=== PATIENT | male | born 1955 | race African-American/Black ===

== ENCOUNTER 2018-09-23 14:19 | Inpatient (IN) | payer MEDICARE, OTHER ==
[~2018-09-23] VITALS: Ht 175.3 cm; Wt 82.1 kg
[~2018-09-23 14:19] MED LIST: ASPI-1073 PO; METF-414 PO; METO25TA6 PO; SIMVASTATIN PO; TAMS-11 PO
[2018-09-23] MEDS ORDERED: LORAZEPAM 1MG TABLET PO ONE (14:45)
[2018-09-23] MEDS ORDERED: FOLIC ACID 1 MG, THIAMINE HCL 100 MG, MVI, ADULT NO.1 10 ML in DEXTROSE 5% WATER 1,000 ML IV ONE ×4 (15:15)
[2018-09-23] MEDS ORDERED: LORAZEPAM 2MG/ML CPJ IV ONE (15:15)
[2018-09-23] MEDS ORDERED: THIAMINE HCL 100 MG/1 ML 2ML VIAL ONE (15:21)
[2018-09-23 15:26] LABS: BASOPHILS % 0.7 % (0.0-2.0); EOSINOPHILS % 0.3 % (0.0-5.0); HEMATOCRIT. 44.3 % (42.0-52.0); HEMOGLOBIN. 15.4 g/dL (14.0-18.0); LYMPHOCYTES % 24.1 % (20.0-50.0); MEAN CORPUSCULAR HEMOGLOBIN 35.1 pg (28.0-32.0); MEAN PLATELET VOLUME 8.7 fl (7.4-10.4); MONOCYTES % 6.9 % (2.0-8.0); PLATELET 91 x1000/uL (130-400); RED BLOOD CELL COUNT 4.38 mill/uL (4.7-6.1)
[2018-09-23 15:31] LABS: CHLORIDE 101 mEq/L (98-107); PROTHROMBIN TIME 10.8 sec (9.6-11.0)
[2018-09-23 15:35] LABS: ETHANOL BLOOD 20 mg/dL
[2018-09-23] MEDS ORDERED: SODIUM CHLORIDE 0.9% 1000ML BAG (SEPSIS BOLUS) IV ONE (16:45)
[2018-09-23] MEDS ORDERED: ONDANSETRON HCL 4MG/2ML INJ IV PRN (17:45)
[2018-09-23] MEDS ORDERED: HYDROCODONE/ACETAMINOPHEN 5/325MG TABLET PO PRN (17:45)
[2018-09-23] MEDS ORDERED: CLONIDINE 0.1MG TABLET PO PRN (17:45)
[2018-09-23] MEDS ORDERED: ACETAMINOPHEN 325MG TABLET PO PRN (17:45)
[2018-09-23] MEDS ORDERED: DOCUSATE SODIUM 100MG CAPSULE PO PRN (17:45)
[2018-09-23] MEDS ORDERED: LORAZEPAM 0.5MG TABLET PO PRN (17:45)
[2018-09-23] MEDS ORDERED: IPRATROPIUM/ALBUTEROL 0.5-3(2.5)MG/3ML NEB INH PRN (17:45)
[2018-09-23 18:49] LABS: CREATINE KINASE MB FRACTION 5.6 ng/mL (0.5-3.6)
[2018-09-23] MEDS ORDERED: ASPIRIN 325MG EC TABLET PO ONE (19:15)
[2018-09-23 22:53] VITALS: BP 152/95
[2018-09-23] MEDS ORDERED: DEXTROSE 50% WATER 50ML SYRINGE IV PRN (23:15)
[2018-09-23] MEDS: BLOOD SUGAR DIAGNOSTIC STRIP TEST SCH (23:16)
[2018-09-23] MEDS: INSULIN LISPRO 100 UNITS/ML SUBCUT SCH (23:35)
[2018-09-24 00:47] VITALS: BP 152/95
[2018-09-24] MEDS ORDERED: SIMV10TA6 MT (02:02)
[2018-09-24 02:34] LABS: CLARITY URINE CLEAR (CLEAR); COLOR URINE ORANGE (YELLOW); KETONES URINE 3+ (NEGATIVE); LEUKOCYTE ESTERASE URINE NEGATIVE (NEGATIVE); NITRITE URINE NEGATIVE (NEGATIVE); OCCULT BLOOD URINE TRACE (NEGATIVE); PH URINE 5.5 (4.5-8.0); PROTEIN URINE 1+ (NEGATIVE); SPECIFIC GRAVITY URINE 1.027 (1.005-1.030)
[2018-09-24 03:51] LABS: *AMPHETAMINES SCREEN URINE NEGATIVE (NEGATIVE); *BARBITURATES SCREEN URINE NEGATIVE (NEGATIVE); *BENZODIAZEPINES SCREEN URINE NEGATIVE (NEGATIVE); *COCAINE SCREEN URINE PRESUMTIVE POSITIVE (NEGATIVE); CANNABINOID URINE SCREEN NEGATIVE (NEGATIVE); METHADONE URINE SCREEN NEGATIVE (NEGATIVE); OPIATES URINE SCREEN NEGATIVE (NEGATIVE); PHENCYCLIDINE URINE SCREEN NEGATIVE (NEGATIVE)
[2018-09-24 04:00] VITALS: BP 119/84
[2018-09-24] MEDS: BLOOD SUGAR DIAGNOSTIC STRIP TEST SCH ×4 (06:15→20:27)
[2018-09-24 06:23] LABS: CHLORIDE 100 mEq/L (98-107)
[2018-09-24 06:27] LABS: BASOPHILS % 0.6 % (0.0-2.0); EOSINOPHILS % 0.7 % (0.0-5.0); HEMATOCRIT. 41.3 % (42.0-52.0); HEMOGLOBIN. 14.7 g/dL (14.0-18.0); LDL CHOLESTEROL 204 mg/dL (5-100); MEAN CORPUSCULAR HEMOGLOBIN 35.5 pg (28.0-32.0); MEAN CORPUSCULAR VOLUME 100.1 fL (80.0-94.0); MEAN PLATELET VOLUME 9.6 fl (7.4-10.4); MONOCYTES % 7.8 % (2.0-8.0); NEUTROPHILS % 54.9 % (40.0-76.0); PHOSPHORUS 2.2 mg/dL (2.5-4.9); PLATELET 79 x1000/uL (130-400); RED BLOOD CELL COUNT 4.13 mill/uL (4.7-6.1); RED CELL DISTRIBUTION WIDTH 13.5 % (11.6-14.6)
[2018-09-24 06:31] LABS: HDL CHOLESTEROL 71 mg/dL (40-59)
[2018-09-24] MEDS: INSULIN LISPRO 100 UNITS/ML SUBCUT SCH ×4 (08:44→21:40)
[2018-09-24 12:00] VITALS: BP 168/87
[2018-09-24] MEDS ORDERED: MAGNESIUM 1 G PREMIX 100 ML IV NR (15:00)
[2018-09-24] MEDS: POTASSIUM CHLORIDE 20MEQ TABLET SR PO SCH (15:06)
[2018-09-24 16:00] VITALS: BP 122/75
[2018-09-24 20:00] VITALS: BP 138/82
[2018-09-24] MEDS ORDERED: ATORVASTATIN CALCIUM 20MG TABLET PO SCH (21:00)
[2018-09-24] MEDS: FOLIC ACID 1MG TABLET PO SCH (21:34)
[2018-09-24] MEDS: THIAMINE HCL 100MG TABLET PO SCH (21:34)
[2018-09-24] MEDS: AMLODIPINE 5MG TABLET PO SCH (21:35)
[2018-09-24] MEDS: TAMSULOSIN HCL 0.4MG SR CAPSULE PO SCH (21:35)
[2018-09-24] MEDS: CHLORDIAZEPOXIDE 25MG CAPSULE PO SCH (21:35)
[2018-09-24] MEDS: NICOTINE 21MG PATCH TD SCH (21:36)
[2018-09-25] VITALS (7 sets, daily range): BP systolic 101–140; BP diastolic 64–83
[2018-09-25] MEDS: CHLORDIAZEPOXIDE 25MG CAPSULE PO SCH (06:01)
[2018-09-25 06:54] LABS: BASOPHILS % 0.7 % (0.0-2.0); EOSINOPHILS % 1.1 % (0.0-5.0); HEMATOCRIT. 43.5 % (42.0-52.0); HEMOGLOBIN. 15.1 g/dL (14.0-18.0); LYMPHOCYTES % 33.6 % (20.0-50.0); MEAN CORPUSCULAR HEMOGLOBIN 35.1 pg (28.0-32.0); MEAN CORPUSCULAR VOLUME 100.9 fL (80.0-94.0); MEAN PLATELET VOLUME 9.7 fl (7.4-10.4); MONOCYTES % 10.4 % (2.0-8.0); NEUTROPHILS % 54.2 % (40.0-76.0); PLATELET 93 x1000/uL (130-400); RED BLOOD CELL COUNT 4.31 mill/uL (4.7-6.1); RED CELL DISTRIBUTION WIDTH 13.7 % (11.6-14.6)
[2018-09-25] MEDS: BLOOD SUGAR DIAGNOSTIC STRIP TEST SCH ×2 (07:02→13:17)
[2018-09-25 07:27] LABS: CHLORIDE 100 mEq/L (98-107)
[2018-09-25] MEDS: AMLODIPINE 5MG TABLET PO SCH (09:00)
[2018-09-25] MEDS: FOLIC ACID 1MG TABLET PO SCH (09:07)
[2018-09-25] MEDS: POTASSIUM CHLORIDE 20MEQ TABLET SR PO SCH (09:07)
[2018-09-25] MEDS: INSULIN LISPRO 100 UNITS/ML SUBCUT SCH ×2 (09:08→13:24)
[2018-09-25] MEDS: NICOTINE 21MG PATCH TD SCH (09:30)
[2018-09-25] MEDS: TAMSULOSIN HCL 0.4MG SR CAPSULE PO SCH (09:32)
[2018-09-25] MEDS: THIAMINE HCL 100MG TABLET PO SCH (09:32)
[2018-09-25] MEDS ORDERED: THIA100T72 PO (16:04)
[2018-09-25] MEDS ORDERED: ATOR20TA PO (16:04)
[2018-09-25] MEDS ORDERED: L25 PO (16:04)
[2018-09-25] MEDS ORDERED: FOLI-43 PO (16:04)
[2018-09-25] MEDS ORDERED: AMLO5TAB88 PO (16:04)
[2018-09-25] MEDS ORDERED: NICO-682 TD (16:04)
== END 2018-09-25 18:26 | disposition home or self-care (01) | DRG 816 ==
LOC: ER 14:19 → 6WST 16:49 → EDBEDREQ 16:53 → EDBEDREQTM 16:53 → ENRESERV 21:30 → 6WST 23:05
PROVIDERS: ADMIT Internal Medicine; ATTEND Internal Medicine
DX: T40.5X1A Poisoning by cocaine, accidental (unintentional), initial encounter (principal); D69.6 Thrombocytopenia, unspecified; E11.22 Type 2 diabetes mellitus with diabetic chronic kidney disease; E87.2 Acidosis; E11.65 Type 2 diabetes mellitus with hyperglycemia; E83.42 Hypomagnesemia; E78.00 Pure hypercholesterolemia, unspecified; E78.5 Hyperlipidemia, unspecified; E87.6 Hypokalemia; N18.9 Chronic kidney disease, unspecified; I12.9 Hypertensive chronic kidney disease with stage 1 through stage 4 chronic kidney disease, or unspecified chronic kidney disease; Z60.4 Social exclusion and rejection; R82.4 Acetonuria; I20.9 Angina pectoris, unspecified; Y90.1 Blood alcohol level of 20-39 mg/100 ml; F10.239 Alcohol dependence with withdrawal, unspecified; F17.200 Nicotine dependence, unspecified, uncomplicated; N40.0 Benign prostatic hyperplasia without lower urinary tract symptoms; Z79.4 Long term (current) use of insulin; Z82.49 Family history of ischemic heart disease and other diseases of the circulatory system; Z91.14 Patient's other noncompliance with medication regimen; Z91.19 Patient's noncompliance with other medical treatment and regimen; R74.0 Nonspecific elevation of levels of transaminase and lactic acid dehydrogenase [LDH]; Z86.19 Personal history of other infectious and parasitic diseases; V43.52XA Car driver injured in collision with other type car in traffic accident, initial encounter; Y92.410 Unspecified street and highway as the place of occurrence of the external cause; Y92.89 Other specified places as the place of occurrence of the external cause; Z79.84 Long term (current) use of oral hypoglycemic drugs
CPT/HCPCS: 36415; 71045; 80048; 80061; 80305; 80320; 82550; 82553; 82962; 83036; 83605; 83735; 83880; 84100; 84443; 84484; 85379; 93005; 93306; 96365; 96366; 99291; J1815; J2060; J3411; J3475; J3490; J7030; J7070; G0480

== ENCOUNTER 2019-03-13 13:56 | Emergency (ER) | payer OTHER, MEDICARE ==
[~2019-03-13] VITALS: Ht 175.3 cm; Wt 85.0 kg
[~2019-03-13 13:56] MED LIST changes: +AMLO5TAB88 PO; -ASPI-1073 PO; +ATOR20TA PO; +FOLI-43 PO; +L25 PO; -METF-414 PO; -METO25TA6 PO; +NICO-682 TD; -SIMVASTATIN PO; +THIA100T72 PO
[2019-03-13 16:28] LABS: BASOPHILS % 0.6 % (0.0-2.0); EOSINOPHILS % 0.4 % (0.0-5.0); LYMPHOCYTES % 22.5 % (20.0-50.0); MEAN CORPUSCULAR HEMOGLOBIN 35.1 pg (28.0-32.0); MEAN CORPUSCULAR VOLUME 100.4 fL (80.0-94.0); MONOCYTES % 7.4 % (2.0-8.0); NEUTROPHILS % 69.1 % (40.0-76.0); PLATELET 108 x1000/uL (130-400); RED BLOOD CELL COUNT 4.29 mill/uL (4.7-6.1); RED CELL DISTRIBUTION WIDTH 13.4 % (11.6-14.6)
[2019-03-13 16:31] LABS: CHLORIDE 101 mEq/L (98-107)
[2019-03-13 16:38] LABS: D-DIMER 1.18 mg/L FEU (<0.50); INR 0.9; PARTIAL THROMBOPLASTIN TIME 26.1 sec (23.4-31.0); PROTHROMBIN TIME 9.7 sec (9.6-11.0)
[2019-03-13] MEDS ORDERED: ASPIRIN 81MG TABLET PO ONE (17:30)
[2019-03-13] MEDS: NITROGLYCERIN 0.4MG TABLET SL SL PRN ×2 (17:43→21:56)
[2019-03-13] MEDS ORDERED: IOHEXOL-350 100 ML BOTTLE ONE (21:07)
[2019-03-13] MEDS ORDERED: INSULIN REGULAR (HUMULIN R) 300UNITS/3ML SUBCUT ONE (21:45)
[2019-03-13] MEDS ORDERED: HYDRALAZINE HCL 25MG TABLET PO ONE (21:45)
[2019-03-13 22:05] VITALS: BP 173/110
== END 2019-03-13 22:02 | disposition short-term general hospital (02) ==
LOC: ER 13:56
DX: R07.89 Other chest pain (principal); I10 Essential (primary) hypertension; E11.9 Type 2 diabetes mellitus without complications
CPT/HCPCS: 36415; 71045; 71275; 80053; 82962; 83880; 84484; 85025; 85379; 85610; 85730; 93005; 96372; 99285; J1815; Q9967; Z7610

== ENCOUNTER 2020-02-01 17:55 | Emergency (ER) | payer MEDICARE, OTHER ==
[~2020-02-01] VITALS: Ht 177.8 cm; Wt 77.0 kg
[2020-02-01 17:56] VITALS: BP 137/78
== END 2020-02-01 19:06 | disposition left against medical advice (07) ==
LOC: ER 17:55
DX: G93.40 Encephalopathy, unspecified (principal); E11.65 Type 2 diabetes mellitus with hyperglycemia; I10 Essential (primary) hypertension; Z79.899 Other long term (current) drug therapy
CPT/HCPCS: 99283

== ENCOUNTER 2020-02-03 02:00 | Emergency (ER) | payer MEDICARE, OTHER ==
[~2020-02-03] VITALS: Ht 175.3 cm; Wt 80.0 kg
[2020-02-03] MEDS ORDERED: SODIUM CHLORIDE 0.9% 1,000 ML IV ONE (03:00)
[2020-02-03 03:33] LABS: BASOPHILS % 0.6 % (0.0-2.0); EOSINOPHILS % 0.3 % (0.0-5.0); HEMATOCRIT. 42.4 % (42.0-52.0); HEMOGLOBIN. 14.9 g/dL (14.0-18.0); LYMPHOCYTES % 27.6 % (20.0-50.0); MEAN CORPUSCULAR HEMOGLOBIN 34.9 pg (28.0-32.0); MEAN CORPUSCULAR VOLUME 99.4 fL (80.0-94.0); MEAN PLATELET VOLUME 8.4 fl (7.4-10.4); MONOCYTES % 6.1 % (2.0-8.0); NEUTROPHILS % 65.4 % (40.0-76.0); PLATELET 126 x1000/uL (130-400); RED BLOOD CELL COUNT 4.27 mill/uL (4.7-6.1); RED CELL DISTRIBUTION WIDTH 16.2 % (11.6-14.6)
[2020-02-03 03:47] LABS: CHLORIDE 101 mEq/L (98-107)
[2020-02-03 03:59] LABS: ETHANOL BLOOD 365 mg/dL
[2020-02-03 10:00] VITALS: BP 172/80
== END 2020-02-03 10:54 | disposition home or self-care (01) ==
LOC: ER 02:00
DX: S02.2XXA Fracture of nasal bones, initial encounter for closed fracture (principal); Y08.89XA Assault by other specified means, initial encounter; Y93.89 Activity, other specified; Y92.89 Other specified places as the place of occurrence of the external cause; Y99.8 Other external cause status; E11.9 Type 2 diabetes mellitus without complications; I10 Essential (primary) hypertension; Z79.899 Other long term (current) drug therapy
CPT/HCPCS: 29125; 36415; 70450; 70486; 71045; 72125; 73030; 80048; 80053; 80305; 80320; 81003; 85025; 85610; 90471; 90715; 93005; 96360; 96361; 96374; 99285; J2060; J7030; G0480

== ENCOUNTER 2020-02-03 15:45 | Emergency (ER) | payer MEDICARE, OTHER ==
[~2020-02-03] VITALS: Ht 177.8 cm; Wt 74.0 kg
[2020-02-03] MEDS ORDERED: SODIUM CHLORIDE 0.9% 1,000 ML IV ONE (16:15)
[2020-02-03] MEDS ORDERED: LORAZEPAM 2MG/ML CPJ IV ONE (16:15)
[2020-02-03] MEDS ORDERED: TETANUS, DIPHTHERIA, PERTUSSIS VAC/PF 0.5ML (>7YR OLD) IM ONE (16:15)
[2020-02-03] MEDS ORDERED: BACITRACIN ZINC OINT UDPKT TOP ONE (16:15)
[2020-02-03 16:58] LABS: BASOPHILS % 0.4 % (0.0-2.0); EOSINOPHILS % 0.1 % (0.0-5.0); HEMATOCRIT. 38.3 % (42.0-52.0); HEMOGLOBIN. 13.3 g/dL (14.0-18.0); LYMPHOCYTES % 23.5 % (20.0-50.0); MEAN CORPUSCULAR HEMOGLOBIN 35.2 pg (28.0-32.0); MEAN CORPUSCULAR VOLUME 101.2 fL (80.0-94.0); MEAN PLATELET VOLUME 8.5 fl (7.4-10.4); MONOCYTES % 5.8 % (2.0-8.0); NEUTROPHILS % 70.2 % (40.0-76.0); PLATELET 127 x1000/uL (130-400); RED BLOOD CELL COUNT 3.79 mill/uL (4.7-6.1); RED CELL DISTRIBUTION WIDTH 16.1 % (11.6-14.6)
[2020-02-03 17:05] LABS: INR 1.1; PROTHROMBIN TIME 11.3 sec (9.6-11.0)
[2020-02-03 17:08] LABS: CHLORIDE 101 mEq/L (98-107); ETHANOL BLOOD 235 mg/dL
[2020-02-03 20:51] LABS: CLARITY URINE CLEAR (CLEAR); COLOR URINE YELLOW (YELLOW); KETONES URINE 1+ (NEGATIVE); LEUKOCYTE ESTERASE URINE NEGATIVE (NEGATIVE); NITRITE URINE NEGATIVE (NEGATIVE); OCCULT BLOOD URINE NEGATIVE (NEGATIVE); PROTEIN URINE NEGATIVE (NEGATIVE); SPECIFIC GRAVITY URINE 1.032 (1.005-1.030)
[2020-02-03 21:29] LABS: *AMPHETAMINES SCREEN URINE NEGATIVE (NEGATIVE); *BARBITURATES SCREEN URINE NEGATIVE (NEGATIVE); *BENZODIAZEPINES SCREEN URINE NEGATIVE (NEGATIVE); *COCAINE SCREEN URINE NEGATIVE (NEGATIVE); CANNABINOID URINE SCREEN NEGATIVE (NEGATIVE); METHADONE URINE SCREEN NEGATIVE (NEGATIVE); OPIATES URINE SCREEN NEGATIVE (NEGATIVE); PHENCYCLIDINE URINE SCREEN NEGATIVE (NEGATIVE)
[2020-02-03 23:01] VITALS: BP 192/93
== END 2020-02-03 23:15 | disposition short-term general hospital (02) ==
LOC: ER 15:45 → CANBEDREQ 23:17
DX: S42.032A Displaced fracture of lateral end of left clavicle, initial encounter for closed fracture (principal); S00.83XA Contusion of other part of head, initial encounter; S40.212A Abrasion of left shoulder, initial encounter; E11.65 Type 2 diabetes mellitus with hyperglycemia; F10.239 Alcohol dependence with withdrawal, unspecified; F17.200 Nicotine dependence, unspecified, uncomplicated; Z79.899 Other long term (current) drug therapy; X58.XXXA Exposure to other specified factors, initial encounter; Y93.89 Activity, other specified; Y92.89 Other specified places as the place of occurrence of the external cause; Y99.8 Other external cause status; Y90.7 Blood alcohol level of 200-239 mg/100 ml
CPT/HCPCS: 29125; 36415; 70450; 70486; 71045; 73030; 80053; 80305; 80320; 81003; 85025; 85610; 90471; 90715; 93005; 96361; 96374; 99285; J2060; J7030; G0480